=== PATIENT | male | born 1955 | race Asian ===

== ENCOUNTER 2018-09-22 09:53 | Emergency (ER) | payer OTHER ==
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
[2018-09-22] MEDS ORDERED: IBUPROFEN 600 MG TABLET PO STA (12:01)
[2018-09-22] MEDS ORDERED: MUPIROCIN 2% OINT 1 GM TOP STA (12:01)
[2018-09-22] MEDS ORDERED: ACETAMINOPHEN 325 MG TABLET PO STA (12:01)
[2018-09-22 12:23] VITALS: BP 143/98
== END 2018-09-22 12:23 | disposition home or self-care (01) ==
LOC: ED 09:53
DX: S87.82XA Crushing injury of left lower leg, initial encounter (principal); S80.812A Abrasion, left lower leg, initial encounter; V58.4XXA Person boarding or alighting a pick-up truck or van injured in noncollision transport accident, initial encounter
CPT/HCPCS: 73562; 99283; A9270

== ENCOUNTER 2022-01-22 10:39 | Outpatient (CLI) | payer OTHER ==
[2022-01-22 11:52] VITALS: BP 120/80
--- NOTE | 2022-01-22 11:52 | SLEEP CARE CONSULTATION ---
Information from patient questionnaire entered by Ilia Nova MA. I have reviewed and concur with the information entered by Ilia Nova MA. This document represents the service I personally performed and the decisions made by me, Geneva Snell ARNP. History of Present Illness Service Date and Time: 01/22/2022 1039 Reason for Visit: New patient (INITIAL, ONSET 11/2001, NO PRIORS,) Chief Complaint: reports: Unrefreshed sleep, Snoring, Observed pauses in breathing, Frequent awakenings at night Date of Onset: 15-20 YEARS Usual bedtime: 1000 PM Time it takes to fall asleep: 10 MINUTES Snores at night: Yes Observed to quit breathing while asleep: Yes Sleeps alone due to snoring: No Number of times waking at night: 2-3 Reasons for waking at night: reports: Choking, Snoring, Gasping for air, Bathroom Toss, Turn, or Twitch while sleeping: No Recalls having dreams: No Usually gets out of bed at: 0600 Feels refreshed in the morning: No Morning headache: No (head feels heavy sometimes, goes away quickly) Sleepy or fatigued during the day: Yes Ever fallen asleep while driving: Yes (drowsy driving; no accidents) Takes day naps: Yes (most days, time varies) Dreams during day naps: No Prior sleep studies: No Additional HPI information: I had the pleasure of seeing KAUSHIK VAUGHN today regarding the possibility of him having a sleep disorder. His current complaints are observed pauses in breathing, snoring and frequent night awakenings. He states his tells him that he snores really loud for a long time and lately it is getting worse. His tells him he stops breathing while sleeping and will wake him up to breathe. He states he does not feel rested when he wakes up in the morning. He also wakes up a lot at night. He has been trying to get him to get this checked out for a long time. He comes in because he is so tired all the time and will fall asleep unintentionally when watching tv or after eating. - Parasomnia Symptoms Ever been unable to move upon waking from sleep: No Walks in sleep: No Talks in sleep: No Ever acted out dreams in sleep: No Ever felt weak in the knees when startled or emotional: No Bothered by creepy, crawly, restless sensations in legs: No Problems with memory or concentration: Yes (memory) Subjective Initial [place] Sleepiness Scale score: 22 (2021) Past Medical History Past Medical History: reports: Hypertension, Diabetes ((PRE)DIET CONTROLLED), Impotence, Other (HIGH CHOLESTEROL, ) Social History The patient's occupation is a RE. Patient is and lives in [place]. Have you smoked in the past 12 months: No Cigarettes per day (20/pack): 20 Years of smokin Quit date: 2018 Smoking Pack Years: 30.0 Alcohol use: No Caffeine use: Yes Caffeine amount and frequency: 1 cup X DAILY Family History Family history of sleep disordered breathing: Yes Family Hx Sleep Apnea: Mother: Snoring, Sleep apnea - Untreated, Father: Snoring, Sleep apnea - Untreated, Sibling: Snoring, Sleep apnea - Treated Allergies and Home Medications Known drug allergies: No Drug allergies reviewed: Yes (NKDA) Home medication list reviewed: Yes Allergy and home medication list: Allergies No Known Drug Allergies Allergy (Verified 09/22/18 10:12) MED LIST PER DAY: (01/22/2022 HELLEN MORENO) ASPIRIN 81 MG CLARITIN 10 MG ATROVASTIN 20 MG HCTZ/LISINOPRIL 12.5/10 MG Review of Systems Weight gain over past 5 years: 5-10 Cardiovascular: reports: high blood pressure Urinary: reports: frequency (AT NIGHT), impotence Psychiatric: denies: anxiety, depression Ear/Nose/Throat: reports: wisdom teeth removed. denies: injury to nose, tonsillectomy Endocrine: denies: thyroid disease Musculoskeletal: reports: joint pain, back pain, muscle pain or cramping Immunologic: denies: allergies to food or environment Physical Exam Vital signs obtained and entered by: HELLEN MELARA Blood Pressure: 120/80 (right, pulse 50, resp 16,) Heart Rate: 64 O2 Saturation: 96 (with paper mask) Height: 5 ft 7 in Weight: 260 lb Body Mass Index: 40.7 BMI Classification: Morbidly Obese Neck circumference: 16 (inches) Mouth and throat: narrow oropharynx Soft palate: long Hard palate: normal Uvula: normal Uvula visualization: 50% Mallampati Class II Tongue: enlarged in size with teeth suarez on lateral edges Tonsils: 1+ Neck: normal w/o lymphadenopathy or thyromegaly Heart: regular rate and rhythm Lungs: clear bilaterally Impression and Plan 1. Suspected Obstructive Sleep Apnea-Hypopnea Syndrome, as suggested by a history of loud and irregular snoring, observed cessation of breath while asleep, gasping or choking in sleep, frequent awakening during the night, unrefreshed sleep, cognitive impairment, and excessive daytime sleepiness. Narrow oropharynx and obesity are common predisposing factors for obstructive sleep apnea-hypopnea syndrome. I recommend proceeding to polysomnography to confirm the diagnosis and to assess severity. If the patient has significant sleep disordered breathing, a manual CPAP titration study will also be performed to find the optimal treatment pressure. I informed the patient of what the sleep studies involve and after some discussion, obtained agreement to proceed. The pathophysiology of obstructive sleep apnea-hypopnea syndrome was discussed with the patient and health risks of cardiovascular and cerebrovascular disease if not treated. Risks of drowsy driving discussed in detail and patient advised to avoid long distance driving and to lime puller at the first sign of drowsiness. Patient agreed to plan. * Schedule polysomnography +- manual CPAP titration study and return in 1-2 weeks after the study to discuss result and initiate therapy. * Avoid long distance driving or driving when feeling sleepy. * Avoid alcohol, sedative and muscle relaxant around bedtime. * Attempt to lose weight. * Review instructions provided by trained office staff on how to prepare for the sleep study. * Return for follow-up after sleep study completed. Counseling Topics: Weight loss health impact Visit Type: In Office Time Spent with Patient (minutes): 30 Provider Statement: I spent 100% of the Face to Face Visit with the patient with greater than 50% spent counseling the patient and coordination of care.
== END 2022-01-22 10:40 | disposition home or self-care (01) ==
LOC: SC 10:39
PROVIDERS: ATTEND Nurse Practitioner Family
DX: R06.83 Snoring (principal); G47.8 Other sleep disorders; R06.81 Apnea, not elsewhere classified; G47.10 Hypersomnia, unspecified; E11.9 Type 2 diabetes mellitus without complications; I10 Essential (primary) hypertension; E66.01 Morbid (severe) obesity due to excess calories; Z68.41 Body mass index [BMI] 40.0-44.9, adult; Z87.891 Personal history of nicotine dependence
CPT/HCPCS: 99203; 99212

== ENCOUNTER 2022-02-04 08:05 | Outpatient (CLI) | payer OTHER | END 2022-02-04 08:06 | disposition home or self-care (01) | LOC: SC 08:05 | PROVIDERS: ATTEND Nurse Practitioner Family | DX: I10 Essential (primary) hypertension (principal); E11.9 Type 2 diabetes mellitus without complications; G47.33 Obstructive sleep apnea (adult) (pediatric); R09.02 Hypoxemia | CPT/HCPCS: 95806 ==

== ENCOUNTER 2022-02-21 10:27 | Outpatient (CLI) | payer OTHER ==
[2022-02-21 11:15] VITALS: BP 129/70
--- NOTE | 2022-02-21 11:15 | SLEEP CARE CONSULTATION ---
Information from patient questionnaire entered by Ilia Nova MA. I have reviewed and concur with the information entered by Ilia Nova MA. This document represents the service I personally performed and the decisions made by , Geneva Snell ARNP. History of Present Illness Service Date and Time: 02/21/2022 1027 Accompanied by: Spouse Initial [place] Sleepiness Scale score: 22 (2021) Current [place] Sleepiness Scale score: 16 (2021) Additional HPI information: KAUSHIK VAUGHN returns for follow up with spouse and results of the recently performed home sleep study. I explained the pathophysiology behind obstructive sleep apnea. We then spent quite a bit of time discussing different treatment options. For mild obstructive sleep apnea, surgery and oral appliance are alternatives to nasal CP AP therapy but in moderate or severe cases, nasal CPAP is the most effective and reliable treatment. Because apnea is primarily in supine position, then positional management therapy could be effective. Methods discussed such as positioning with pillows to prevent supine sleep. I reviewed the impact of weight changes on sleep apnea and strongly recommended losing weight. After some discussion, the patient opted to go with the nasal CPAP therapy. Nasal autoCPAP set at 4-15 cmH20 will be ordered with rationale explained. A manual titration study will be ordered if unable to find optimal pressure with office adjustments. I explained how CPAP machine works and what to expect when using the machine. Using CPAP every night in order to get used to it was emphasized. Patient advised to put CPAP mask on before getting into bed so as not to fall asleep without CPAP. To assist acclimation to CPAP use, it could also be used for a short time during day while reading or watching TV. The patient was instructed to call the CPAP supplier to discuss any mechanical problem that may occur. If the mask given is uncomfortable or is difficult to keep on through the night even with adjustment, contact the CPAP supplier as many will replace with another mask style if notified before 30 days. If snoring or perceives is not getting enough air or too much air from the machine, notify this office. AAS patient education PAP tips reviewed and given to patient. Patient does not drink alcohol. Patient was cautioned about risks of drowsy driving until sleepiness symptoms resolve. Sleep Study - Results Type of Sleep Study: Home sleep study (F/U HOME STUDY, 02/04/22 [facility],) Prior sleep studies: No Polysomnography/Home Sleep Study results: Physician Impression: The quality of the study is good. The length of the study is adequate (> 240 minutes). Please also see the tabulated and graphic data. 1. Obstructive Sleep Apnea-Hypopnea (ICD-10 G47.33), severe, with an AHI of 31.3/hr and hakeem SaO2 of 60%. During the study, the patient had 166 apneas (165 obstructive, 0 central, 1 mixed) and 46 hypopneas. The longest episode lasted 119.0 seconds. The patient only slept supine during this study (supine AHI was 31.4 and non-supine, 0.00). 2. Hypoxemia (ICD-10 R09.02), moderate, with the lowest oxygen saturation of 60 % and 98.6 minutes with SaO2 under 90%. Baseline oxygen saturation was normal (Average oxygen saturation was 91%). Allergies and Home Medications Home medication list reviewed: Yes (no changes) Allergy and home medication list: Allergies No Known Drug Allergies Allergy (Verified 09/22/18 10:12) Review of Systems Review of systems same as previous: Yes (no changes) Physical Exam Vital signs obtained and entered by: HELLEN MELARA Blood Pressure: 129/70 (LEFT, PULSE 76, RESP 18, ) Cuff size: wrist Heart Rate: 77 O2 Saturation: 94 (PAPER) Height: 5 ft 7 in Weight: 173 lb Body Mass Index: 27.1 BMI Classification: Overweight Impression and Plan 1. Obstructive Sleep Apnea-Hypopnea Syndrome, severe, with lowest oxygen sat uration of 60%. Obviously this is the cause of the patients symptoms of unrefreshed sleep, and excessive daytime sleepiness. Positive pressure therapy could benefit hypertension and diabetes. As mentioned above, the patient will be started on nasal autoCPAP therapy with pressure set at 4-15 cmH2O. A manual titration study will be completed if unable to find optimal treatment pressure with office adjustments. Compliance guidelines also reviewed. A copy of compliance guidelines will be given for reference at check out. 2. Hypoxemia, moderate, with the lowest oxygen saturation of 60 % and 98.6 minutes with SaO2 under 90%. His baseline oxygen saturation was normal with an average oxygen saturation of 91%. * Nasal auto CPAP therapy, pressure at 4-15 cm H2O. * Attempt to lose weight. * Avoid alcohol consumption near bedtime. * Avoid supine sleep until using CPAP. * The patient is again cautioned about driving until sleepiness completely resolves. * Return one month after CPAP obtained. I will assess response to therapy and compliance at that time. Counseling Topics: Weight loss health impact Visit Type: In Office Other Participants: Spouse/Significant Other Time Spent with Patient (minutes): 20 Provider Statement: I spent 100% of the Face to Face Visit with the patient with greater than 50% spent counseling the patient and coordination of care.
== END 2022-02-21 10:28 | disposition home or self-care (01) ==
LOC: SC 10:27
PROVIDERS: ATTEND Nurse Practitioner Family
DX: G47.33 Obstructive sleep apnea (adult) (pediatric) (principal); R09.02 Hypoxemia; E66.3 Overweight; Z68.27 Body mass index [BMI] 27.0-27.9, adult
CPT/HCPCS: 99212; 99213

== ENCOUNTER 2022-06-18 14:11 | Outpatient (CLI) | payer MEDICARE, OTHER ==
[2022-06-18 15:11] VITALS: BP 162/82
--- NOTE | 2022-06-18 15:11 | SLEEP CARE CONSULTATION ---
Information from patient questionnaire entered by Ilia Nova MA. I have reviewed and concur with the information entered by Ilia Nova MA. This document represents the service I personally performed and the decisions made by , Geneva Snell ARNP. History of Present Illness Service Date and Time: 06/18/2022 1411 Previous diagnosis: Severe, Obstructive Sleep Apnea-Hypopnea Syndrome AHI: 31.3 (in 2021) Reason for follow up: first compliance (RESPRUDENCE JEAN 04/14/2022, ) Equipment type: CPAP Equipment obtained from: Other ([facility]; got initial supplies) Mask style: Nasal pillows Backup mask available: No Last cushion change: 1 month + Prior sleep studies: No Type of Sleep Study: Home sleep study (F/U HOME STUDY, 02/04/22 [facility],) HPI additional information: KAUSHIK VAUGHN was diagnosed to have severe, AHI 31.3, obstructive sleep apnea- hypopnea syndrome and returned today for CPAP therapy first compliance follow- up. Sleep Study - Results Type of Sleep Study: Home sleep study (F/U HOME STUDY, 02/04/22 [facility],) Prior sleep studies: No CPAP Compliance Data - Data Reviewed with Patient Average duration of nightly device use: 6 hours 3 minutes Compliance rate %: 87 (54/60 days used) Current pressure setting (cmH2O): 4-15 (median 6.6, avg 9.8, max 11.7) Average residual AHI: 2.2 Central apnea: 0.6 Obstructive apnea: 0.9 Average large leak: 5.5 L/min Subjective Patient concerns: reports: mask leak noise. denies: aerophagia, mask discomfort, air blowing in eyes, condensation in mask/hose, nasal congestion, dry mouth, nose, throat, epistaxis, other Observed to snore while using device: No Current pressure setting perceived as: comfortable On therapy, patient: reports: sleeping better, awakening more refreshed, being more awake and alert during the day, more rested overall. denies: drowsiness while driving Initial [place] Sleepiness Scale score: 22 (2021) Current [place] Sleepiness Scale score: 8 (06/17/2022) Allergies and Home Medications Drug allergies reviewed: Yes (NKDA) Home medication list reviewed: Yes (no changes) Allergy and home medication list: Allergies No Known Drug Allergies Allergy (Verified 09/22/18 10:12) Review of Systems Review of systems same as previous: Yes (no changes) Physical Exam Vital signs obtained and entered by: HELLNE MELARA Blood Pressure: 162/82 (RESP 20, PULSE 64, RIGHT) Heart Rate: 62 O2 Saturation: 95 (PAPER MASK) Height: 5 ft 7 in Weight: 173 lb (CLOTHES) Body Mass Index: 27.1 BMI Classification: Overweight Impression and Plan 1. Obstructive Sleep Apnea-Hypopnea Syndrome, severe, with good treatment compliance and good apnea control. On CPAP therapy, the patient has better sleep quality and is more rested overall. Patient has had some mask leak noises when he turns on his side. I advised him to try a CPAP pillow that he can obtain online and he voiced understanding. Patient denies problems with oral dryness, nasal congestion, epistaxis, skin irritation or aerophagia. The patients pressure will be changed to autoCPAP 8-12 cmH20 to reflect pressures being used. Patient advised to contact me if pressure change is uncomfortable so that it can be adjusted. Goals for apnea control discussed. Patient's apnea severity and rationale for treatment to reduce apnea, improve sleep quality and reduce cardiovascular and cerebrovascular events was reviewed. I also reviewed the benefit of consistent device use of CPAP for hypertension and diabetes. Patient is overweight with a BMI of 27.1 and he was advised to try to lose weight. He voiced understanding. * Change auto CPAP pressure to 8-12 cmH2O * Notify me if snoring with mask or feeling that the pressure is too much or too little * Attempt to lose weight * Call this office if any problems using CPAP * Return for follow up in 1-2 months, or sooner if concerns arise Counseling Topics: Spare mask, Weight loss health impact Visit Type: In Office Time Spent with Patient (minutes): 20 Provider Statement: I spent 100% of the Face to Face Visit with the patient with greater than 50% spent counseling the patient and coordination of care.
== END 2022-06-18 14:12 | disposition home or self-care (01) ==
LOC: SC 14:11
PROVIDERS: ATTEND Nurse Practitioner Family
DX: G47.33 Obstructive sleep apnea (adult) (pediatric) (principal); E66.3 Overweight; Z68.27 Body mass index [BMI] 27.0-27.9, adult
CPT/HCPCS: 99213; G0463; 99212

== ENCOUNTER 2022-08-27 14:26 | Outpatient (CLI) | payer MEDICARE, OTHER ==
[2022-08-27 15:07] VITALS: BP 126/60
--- NOTE | 2022-08-27 15:07 | SLEEP CARE CONSULTATION ---
Information from patient questionnaire entered by Camelia Valerio MA. I have reviewed and concur with the information entered by Camelia Valerio MA. This document represents the service I personally performed and the decisions made by Channing snowden Caren J, ARNP. History of Present Illness Service Date and Time: 08/27/2022 1426 Previous diagnosis: Severe, Obstructive Sleep Apnea-Hypopnea Syndrome AHI: 31.3 Reason for follow up: other (2 month f/u with pressure change) Equipment type: CPAP (ResMed) Equipment obtained from: Other ([facility]; getting supplies) Mask style: Nasal pillows Backup mask available: No (will need to keep old mask when replaced) Last cushion change: lately Prior sleep studies: No Type of Sleep Study: Home sleep study (F/U HOME STUDY, 02/04/22 [facility],) HPI additional information: KAUSHIK VAUGHN was diagnosed to have severe, AHI 31.3, obstructive sleep apnea- hypopnea syndrome and returned today for CPAP therapy 2 month with pressure change follow-up. Sleep Study - Results Type of Sleep Study: Home sleep study (F/U HOME STUDY, 02/04/22 [facility],) Prior sleep studies: No CPAP Compliance Data - Data Reviewed with Patient Average duration of nightly device use: 5 hours 35 minutes Compliance rate %: 64 (37/45 days used) Current pressure setting (cmH2O): 8-12 (avg 9.9, max 10.7) Average residual AHI: 1.6 Central apnea: 0.6 Obstructive apnea: 0.6 Subjective Missed days of use due to: reports: travel Patient concerns: reports: mask leak noise (mask looses up over time). denies: aerophagia, mask discomfort, air blowing in eyes, condensation in mask/hose, nasal congestion, dry mouth, nose, throat, epistaxis Observed to snore while using device: No Current pressure setting perceived as: too low On therapy, patient: reports: sleeping better, awakening more refreshed, being more awake and alert during the day, more rested overall. denies: drowsiness while driving Initial [place] Sleepiness Scale score: 22 (2021) Current [place] Sleepiness Scale score: 9 Allergies and Home Medications Drug allergies reviewed: Yes (NKDA) Home medication list reviewed: Yes (no changes) Review of Systems Review of systems same as previous: Yes (no changes) Physical Exam Vital signs obtained and entered by: BETTY FELICIANO Blood Pressure: 126/60 Cuff size: long Heart Rate: 64 O2 Saturation: 96 Height: 5 ft 6.5 in Weight: 172 lb 2 oz Body Mass Index: 27.3 BMI Classification: Overweight Impression and Plan 1. Obstructive Sleep Apnea-Hypopnea Syndrome, severe, with fair treatment compliance and good apnea control. On CPAP therapy, the patient has better sleep quality and is more rested overall. Patient feels he could use a little more pressure, some air hunger. I will adjust his pressure to 10-12 cmh2O for patient comfort and to reduce air hunger. He has brought his compliance up but it is still under 70%. He states he was traveling for a week and did not take the machine with him. I encouraged him to use his CPAP more often to increase his compliance. He voiced understanding. Patient's apnea severity and rationale for treatment to reduce apnea, improve sleep quality and reduce cardiovascular and cerebrovascular events was reviewed. I also reviewed the benefit of consistent device use of CPAP for hypertension and diabetes. 2. Overweight unspecified. Currently patients BMI is 27.3. Thus patient is advised to lose weight. Weight loss can be done with reducing portion size, reducing refined foods and balancing content with vegetables, fruit and whole grain foods. In addition, patient encouraged to get regular exercise. * Change auto CPAP pressure to 10-12 cmH2O * Notify me if snoring with mask or feeling that the pressure is too much or too little * Attempt to lose weight * Call this office if any problems using CPAP * Return for follow up in 3 months, or sooner if concerns arise Counseling Topics: Spare mask, Weight loss health impact Visit Type: In Office Time Spent with Patient (minutes): 20 Provider Statement: I spent 100% of the Face to Face Visit with the patient with greater than 50% spent counseling the patient and coordination of care.
== END 2022-08-27 14:27 | disposition home or self-care (01) ==
LOC: SC 14:26
PROVIDERS: ATTEND Nurse Practitioner Family
DX: G47.33 Obstructive sleep apnea (adult) (pediatric) (principal); E66.3 Overweight; Z68.27 Body mass index [BMI] 27.0-27.9, adult
CPT/HCPCS: 99213; G0463; 99212

== ENCOUNTER 2022-12-03 13:31 | Outpatient (CLI) | payer MEDICARE, OTHER ==
[2022-12-03 14:04] VITALS: BP 138/72
--- NOTE | 2022-12-03 14:04 | SLEEP CARE CONSULTATION ---
Information from patient questionnaire entered by Verena Crowley. I have reviewed and concur with the information entered by Verena Crowley. This document represents the service I personally performed and the decisions made by me, Geneva Snell ARNP. History of Present Illness Service Date and Time: 12/03/2022 1331 Previous diagnosis: Severe, Obstructive Sleep Apnea-Hypopnea Syndrome AHI: 31.3 (in 2021) Reason for follow up: three month (F/U PRESSURE CHANGE ) Equipment type: CPAP (RESMED) Equipment obtained from: Other ([facility]; getting supplies) Mask style: Nasal pillows Mask brand: Respironics (Dreamwear) Backup mask available: Yes (old mas) Last cushion change: 3 months Prior sleep studies: No Type of Sleep Study: Home sleep study (F/U HOME STUDY, 02/04/22 [facility],) HPI additional information: KAUSHIK VAUGHN was diagnosed to have severe, AHI 31.3, obstructive sleep apnea- hypopnea syndrome and returned today for CPAP therapy three month with pressure change follow-up. Sleep Study - Results Type of Sleep Study: Home sleep study (F/U HOME STUDY, 02/04/22 [facility],) Prior sleep studies: No CPAP Compliance Data - Data Reviewed with Patient Average duration of nightly device use: 5 hours 29 minutes Compliance rate %: 62 (70/90 days used; 09-03-2022 to 12-01-2022) Current pressure setting (cmH2O): 10-12 Average residual AHI: 2.0 Central apnea: 0.5 Obstructive apnea: 1.0 Average large leak: 10.2 LPM Subjective Missed days of use due to: reports: travel (vacation, did not take with him) Patient concerns: reports: mask discomfort (does like his mask now), mask leak noise (occasional). denies: aerophagia, air blowing in eyes, condensation in mask/hose, nasal congestion, dry mouth, nose, throat, epistaxis Observed to snore while using device: No Current pressure setting perceived as: comfortable On therapy, patient: reports: sleeping better, awakening more refreshed, being more awake and alert during the day, more rested overall. denies: drowsiness while driving Initial [place] Sleepiness Scale score: 22 (2021) Current [place] Sleepiness Scale score: 8 (12/03/22) Allergies and Home Medications Drug allergies reviewed: Yes (NKDA) Home medication list reviewed: Yes (no changes) Review of Systems Review of systems same as previous: Yes (no changes) Physical Exam Vital signs obtained and entered by: VERENA Cornejo MA Blood Pressure: 138/72 (LEFT ARM) Cuff size: regular Heart Rate: 77 O2 Saturation: 94 Height: 5 ft 7 in Weight: 172 lb Body Mass Index: 26.9 BMI Classification: Overweight Impression and Plan 1. Obstructive Sleep Apnea-Hypopnea Syndrome, severe, with fair treatment compliance and good apnea control. On CPAP therapy, the patient has better sleep quality and is more rested overall. Kaushik's compliance is affected by him not wanting to take his CPAP when traveling. He has been thinking about trying to get a smaller one for travel. I informed hi I can help him with getting a travel machine but his insurance will probably not pay for this. He voiced understanding. Patient requesting a prescription for a travel CPAP that he can take with him on his vacations. I will write prescription and give to him. Patient's apnea severity and rationale for treatment to reduce apnea, improve sleep quality and reduce cardiovascular and cerebrovascular events was reviewed. I also reviewed the benefit of consistent device use of CPAP for hypertension and diabetes. 2. Overweight, unspecified. Currently patients BMI is 26.9. Obesity increases the risk of apnea, CPAP pressure requirements and overall health risks especially cardiovascular and diabetes. Thus patient is advised to lose weight. * Continue auto CPAP pressure at 10-12 cmH2O * Travel CPAP prescription * Notify me if snoring with mask or feeling that the pressure is too much or too little * Attempt to lose weight * Call this office if any problems using CPAP * Return for follow up in 1 year, or sooner if concerns arise Counseling Topics: Spare mask, Weight loss health impact Visit Type: In Office Time Spent with Patient (minutes): 20 Provider Statement: I spent 100% of the Face to Face Visit with the patient with greater than 50% spent counseling the patient and coordination of care.
== END 2022-12-03 13:32 | disposition home or self-care (01) ==
LOC: SC 13:31
PROVIDERS: ATTEND Nurse Practitioner Family
DX: G47.33 Obstructive sleep apnea (adult) (pediatric) (principal); E66.3 Overweight; Z68.29 Body mass index [BMI] 29.0-29.9, adult
CPT/HCPCS: 99213; G0463; 99212

== ENCOUNTER 2024-01-25 14:50 | Emergency (ER) | payer MEDICARE, OTHER ==
--- NOTE | 2024-01-25 15:23 | ED Physician Documentation ---
PD HPI URI - Stated complaint Stated Complaint: SOA - Chief complaint Chief Complaint: Resp - History obtained from History obtained from: Patient - History of Present Illness Timing - onset: How many days ago (several) Timing duration: Days (several) Timing details: Abrupt onset, Still present Associated symptoms: Chills, Dry cough, Dyspnea (with hoarse voice and whezing) Contributing factors: Travel (spent a month in [place] [facility], returned 3 days ago. started to be ill while still there.), COPD / asthma. No: Sick contact Worsened by: Activity Similar symptoms before: Has not had sx before Review of Systems Constitutional: reports: Chills, Myalgias. denies: Fever Nose: reports: Rhinorrhea / runny nose, Congestion Throat: denies: Sore throat Cardiac: denies: Chest pain / pressure Respiratory: reports: Dyspnea, Cough, Wheezing GI: reports: Nausea. denies: Vomiting, Diarrhea Skin: denies: Rash PD PAST MEDICAL HISTORY - Past Medical History Past Medical History: Yes Cardiovascular: None Respiratory: Asthma Neuro: None Endocrine/Autoimmune: None : Kidney stones - Past Surgical History Past Surgical History: Yes General: Colonoscopy - Present Medications Home Medications: Ambulatory Orders Medication Instructions Recorded Confirmed Albuterol Sulf [Ventolin Hfa 1 - 2 puffs INH Q4HR PRN #1 each 01/25/24 Inhaler] Albuterol Sulfate [Proair 90 mcg IH QID PRN 01/25/24 01/25/24 Respiclick] Lisinopril/Hydrochlorothiazide 1 tab PO DAILY 01/25/24 01/25/24 [Zestoretic 10-12.5 mg Tablet] Loratadine [Claritin] 1 cap PO DAILY 01/25/24 01/25/24 Tiotropium [place] [Spiriva 1 inh ORAL BID 01/25/24 01/25/24 Respimat] dexAMETHasone [Decadron] 4 mg PO DAILY #5 tablet 01/25/24 guaiFENesin/CODEINE [Robitussin AC] 10 ml PO Q6H PRN #240 ml 01/25/24 - Allergies Allergies/Adverse Reactions: Allergies Allergy/AdvReac Type Severity Reaction Status Date / Time No Known Drug Allergies Allergy Verified 01/25/24 15:06 - Social History Does the pt smoke?: No Smoking Status: Never smoker Does the pt drink ETOH?: No Does the pt have substance abuse?: No - Immunizations Immunizations are current?: Yes PD ED PE NORMAL - Vitals Vital signs reviewed: Yes - General General: Alert and oriented X 3, No acute distress, Well developed/nourished - HEENT HEENT: Ears normal, Moist mucous membranes (some hoarseness of voice. ), Pharynx benign - Neck Neck: Supple, no meningeal sign, No adenopathy - Cardiac Cardiac: RRR, No murmur - Respiratory Respiratory: No respiratory distress. No: Clear bilaterally (no coarse sounds but does have exp wheezing. ) - Abdomen Abdomen: Soft, Non tender - Derm Derm: Normal color, Warm and dry - Extremities Extremities: Normal ROM s pain, No edema, No calf tenderness / cord Results - Vitals Vitals: Oxygen O2 Source Room air - Labs Labs: Laboratory Tests 01/25/24 15:40 Nasal Adenovirus (PCR) NOT DETECTED Nasal B. parapertussis DNA (PCR) NOT DETECTED Nasal Coronavir 229E PCR NOT DETECTED Nasal Coronavir HKU1 PCR NOT DETECTED Nasal Coronavir NL63 PCR NOT DETECTED Nasal Coronavir OC43 PCR NOT DETECTED Nasal Enterovir/Rhinovir PCR NOT DETECTED Nasal Influenza B PCR NOT DETECTED Nasal Influenza A PCR NOT DETECTED Nasal Parainfluen 1 PCR NOT DETECTED Nasal Parainfluen 2 PCR NOT DETECTED Nasal Parainfluen 3 PCR NOT DETECTED Nasal Parainfluen 4 PCR NOT DETECTED Nasal RSV (PCR) DETECTED A Nasal B.pertussis DNA PCR NOT DETECTED Nasal C.pneumoniae (PCR) NOT DETECTED Quan Human Metapneumo PCR NOT DETECTED Nasal M.pneumoniae (PCR) NOT DETECTED Nasal SARS-CoV-2 (PCR) NOT DETECTED - Rads (name of study) chest xray Relevant Findings:: Prelim report reviewed, EMP independent interpretation of test (mp infltrates nor effusions. ) PD Medical Decision Making - ED course Complexity details: reviewed results (no pnuemonia. Viral testing positive for RSV.), considered differential (has some wheezing that improves with Albuterol. Has some underlying asthma with MDI use just intermittently. Can try inhaler and meds for cough. ), d/w patient Departure - Departure Disposition: 01 Home, Self Care Clinical Impression: RSV (acute bronchiolitis due to respiratory syncytial virus), Cough, Dyspnea Condition: Stable Record reviewed to determine appropriate education?: Yes Instructions: ED RSV Bronchiolitis Follow-Up: Andrew Buckley MD [Primary Care Provider] - Prescriptions: Albuterol Sulf [Ventolin Hfa Inhaler] 1 - 2 puffs INH Q4HR PRN #1 each PRN Reason: Shortness Of Air/Wheezing dexAMETHasone [Decadron] 4 mg PO DAILY #5 tablet guaiFENesin/CODEINE [Robitussin AC] 10 ml PO Q6H PRN #240 ml PRN Reason: Cough Comments: Your chest x-ray is clear without any signs of pneumonia, fluid buildup or collapsed lung. Your respiratory viral panel test is positive for a virus called RSV (respiratory syncytial virus). This will give a lot of cough and wheezing and trouble breathing. It particularly causes inflammation through the bronchioles. It can flareup underlying reactive airway disease as well in the augmented if you have some asthma or such. We can try treating it with a combination of albuterol inhaler 2 to 3 puffs 4 times daily and extra times if needed. Decadron steroid for inflammation of the bronchioles daily for the next 5 days. To that add the medicated cough syrup to try to help better for your cough. The inhaler be may be most useful for the breathing and cough. Most other medications are typically not as helpful for the RSV portion but the cough medicine for symptoms and the steroid may be helpful if you have underlying reactive airway disease/asthma for the inflammation component of that. I sent your prescriptions to your preferred pharmacy. Being a viral illness, there is no benefit from antibiotics. Stay well-hydrated otherwise. Tylenol if needed for pains or fevers. Forms: PCP List Discharge Date/Time: 01/25/24 17:14
[2024-01-25] MEDS: BENZONATATE 100 MG CAPSULE PO STA (16:17)
[2024-01-25] MEDS: guaiFENesin/CODEINE 5 ML UDC PO STA (16:17)
[2024-01-25] MEDS: dexAMETHasone 4 MG TABLET PO STA (16:17)
--- NOTE | 2024-01-25 16:19 | XRAY Report ---
PROCEDURE: Chest 1V INDICATIONS: cough and dyspnea TECHNIQUE: One view of the chest was acquired. COMPARISON: None. FINDINGS: Surgical changes and devices: None. Lungs and pleura: No pleural effusions or pneumothorax. Lungs are clear. Mediastinum: Mediastinal contours appear normal. Heart size is normal. Bones and chest wall: No suspicious bony lesions. Overlying soft tissues appear unremarkable. IMPRESSION: No acute cardiopulmonary process. Reviewed by: Charo Resendez MD on 01/25/2024 4:18 PM PST Approved by: Charo Resendez MD on 01/25/2024 4:18 PM PST Station ID: [id number]
[2024-01-25] MEDS: ALBUTEROL NEB 2.5 MG/3 ML INH STA (16:39)
[2024-01-25 16:42] LABS: B. PARAPERTUSSIS- RESP PCR PAN NOT DETECTED; B. PERTUSSIS- RESP PCR PANEL NOT DETECTED; C. PNEUMONIAE- RESP PCR PANEL NOT DETECTED; CORONAVIRUS 229E-RESP PCR NOT DETECTED; CORONAVIRUS HKU1-RESP PCR NOT DETECTED; CORONAVIRUS NL63-RESP PCR NOT DETECTED; CORONAVIRUS OC43-RESP PCR NOT DETECTED; HUMAN METAPNEUMOVIRUS NOT DETECTED; INFLUENZA A- RESP PCR PANEL NOT DETECTED; M. PNEUMONIAE- RESP PCR PANEL NOT DETECTED; PARAINFLUENZA VIRUS 1 NOT DETECTED; PARAINFLUENZA VIRUS 2 NOT DETECTED; PARAINFLUENZA VIRUS 3 NOT DETECTED; PARAINFLUENZA VIRUS 4 NOT DETECTED; RHINOVIRUS/ENTEROVIRUS NOT DETECTED; SARS-CoV-2 -RESP PCR PANEL NOT DETECTED
[2024-01-25 16:43] LABS: INFLUENZA B - RESP PCR PANEL NOT DETECTED; RSV- RESP PCR PANEL DETECTED
[2024-01-25 17:21] VITALS: BP 132/86; O2SAT 94
== END 2024-01-25 17:14 | disposition home or self-care (01) ==
LOC: ED 14:50
DX: J20.5 Acute bronchitis due to respiratory syncytial virus (principal); Z11.52 Encounter for screening for COVID-19
CPT/HCPCS: 71045; 87633; 94640; 99284; A9270; J8540